=== PATIENT | female | born 1995 | race Caucasian/White ===

== ENCOUNTER 2021-10-12 10:36 | Outpatient (CLI) | payer OTHER, SELFPAY ==
[2021-10-13 12:27] LABS: Strep B DNA Probe NEGATIVE (Negative)
== END 2021-10-12 10:37 | disposition home or self-care (01) ==
LOC: NFLDREF 10:37
PROVIDERS: Visit Provider Obstetrics & Gynecology
DX: Z34.93 Encounter for supervision of normal pregnancy, unspecified, third trimester (principal); Z3A.36 36 weeks gestation of pregnancy
CPT/HCPCS: 87081; 87653

== ENCOUNTER 2021-11-03 03:25 | Inpatient (IN) | payer OTHER, SELFPAY ==
[2021-11-03] VITALS (100 sets, daily range): BP systolic 77–146; BP diastolic 40–88; PULSE 62–128; RESP 15–20; TEMP 36.6–37.7; O2SAT 95–100; BMI 32.7
[2021-11-03] MEDS: LACTATED RINGERS 1000 ML 1,000 ML 1125 ML IV ×2 (04:05→05:13)
[2021-11-03] MEDS: LIDOCAINE 2% (PF) 5 ML VIAL EPIDURAL (05:04)
[2021-11-03] MEDS: ROPIVACAINE 0.2% 100 ml 100 ML 12 MG EPIDURAL ×2 (05:09→12:51)
--- NOTE | 2021-11-03 05:28 | PM.ANBPRC ---
[facility] Social History (Updated 10/04/21 @ 17:05 by Daniella Craft MD) Narrative: Recently moved from [place] to [place]. She received her master's in anthropology in [place]. She is now working at [employer] in [employer]. She lives in [place] with her . works from home for [employer]. Smoking Status: Never smoker Meds Home Medications and Allergies Home Medications Medication Instructions Recorded Confirmed Type ferrous sulfate 325 mg (65 mg mg PO DAILY 09/30/21 10/31/21 History iron) tablet fluoxetine 20 mg capsule 20 mg PO DAILY 09/30/21 11/03/21 History prenat.vits,bhavani,kne-xzud-kpzoa 1 tab PO QDAY 09/30/21 11/03/21 History famotidine 20 mg tablet (Pepcid) 20 mg PO QDAY 10/04/21 11/03/21 History Allergies Allergy/AdvReac Type Severity Reaction Status Date / Time No Known Allergies Allergy Unknown Verified 10/31/21 11:28 Results Vital Signs Vital Signs: Last Vital Signs Temp 97.9 F 11/03/21 04:00 Pulse 81 11/03/21 05:23 BP 121/73 11/03/21 05:23 Pulse Ox 100 11/03/21 05:08 Anesthesia Procedures Epidural Insertion Patient Location: OB Start Time: 04:45 Stop Time: 05:45 Start Date: 11/03/21 Stop Date: 11/03/21 Reason for Block: procedure for pain Patient Position: sitting Performed By: Ciara Corea Preanesthetic Checklist: IV checked, site marked, risks and benefits discussed, monitors and equipment checked, pre-op evaluation, timeout performed and anesthesia consent Prep: chlorhexidine gluconate Monitoring: blood pressure monitoring, continuous pulse oximetry and heart rate Approach: midline Vertebral Space: lumbar (1-5) Epidural Technique: CB saline Needle Type: Hustead Injection Technique: continuous catheter Needle gauge: 18 Needle Length (cm): 10 cm Needle Insertion Depth (cm): 7 Catheter Gauge: 18 Catheter Type: multi-orifice Catheter at skin depth (cm): 15 Test Dose Result: negative
[2021-11-03 05:33] LABS: SARS PCR* Negative SARS-CoV-2 (Negative)
[2021-11-03] MEDS: PHENYLEPHRINE 100 MCG/ML SYRINGE IVP ×5 (08:10→11:37)
[2021-11-03] MEDS: ONDANSETRON 2 MG/ML inj 4 MG IV ×2 (08:26→11:24)
[2021-11-03] MEDS: LACTATED RINGERS 1000 ML 1,000 ML 125 ML IV (11:04)
--- NOTE | 2021-11-03 15:12 | W.PM.LDBA ---
Subjective History of Present Illness Time Seen by Provider: 09:30 Date Seen: 11/03/21 Narrative: Patient is being admitted to Labor and Delivery for SROM of clear fluid that occurred about 2 am. She is a 26 year old at 40 0/7 weeks gestation. Her full history and physical was dictated by Dr. Rosario on 10/12/2021. Please see this for details. OB Problem list: 1. OCD, stable on fluoxetine 20 mg 2. History of clubfeet, patient Normal level 2 ultrasound 3. Anemia. 10.1 at 28 weeks Ferrous sulfate 325 mg 10/12/21: Hgb at 36w6d: 11.2 OB - H&P: Exam Physical Exam: Vital signs: Temp Pulse Resp BP Pulse Ox 99.5 F 92 20 138/62 98 11/03/21 12:35 11/03/21 15:04 11/03/21 12:35 11/03/21 15:04 11/03/21 08:48 Constitutional: Constitutional: no acute distress and average body habitus Routine HEENT Exam: Head: Present atraumatic Routine Neck Exam: Neck: Present full ROM Routine Respiratory Exam: Respiratory: Present CTA bilaterally Routine Cardiovascular Exam: Cardiovascular: RRR Detailed Labor and Delivery Exam: Patient Gravid: yes Dilation (cm): 9 (Per RN) Effacement (%): 100 Cervix position: anterior Consistency: soft Tachysystole: No Contraction intensity: Strong/Firm Comments: Cervical exam done previously by RN Fetus (Single): Station: 0 Amniotic Membrane Status: SROM Amniotic Membrane Fluid Description: Clear Heart Rate Baseline: 145 Monitor Accelerations: Present Monitor Decelerations: None Client Relationship Consultant Variability: Average (6-10) Routine Back/Spine/Pelvis Exam: Back/Spine: full ROM Routine Skin Exam: Present intact Routine Neurological Exam: Present alert and oriented X3 Routine Psychiatric Exam: Present normal affect, normal thought process and cooperative OB - Problem Based A/P Additional Plan (1) Normal labor: Status: Acute Plan Assessment:?? 26 at 40 0/7 gestation?? Patient is coping well with challenges of labor.?? Labor type: Spontaneous, Active labor? Category 1 FHR pattern.?? Labor complicated by: none GBS neg? Plan:?? Continue with routine intrapartum cares as ordered. Patient encouraged to repositioning to promote physiologic labor and .?? Patient comfortable with epidural in place. Continue for pain management. OP presentation per RN, encouraged peanut ball and trying side-lying release. Patient denies urge to push. Anticipate vaginal .? Delivery/Labor/Induction Plan Plan: expectant management
--- NOTE | 2021-11-03 16:08 | PM.OBPNL ---
Pain Control Time Seen by Provider: 03:08 Date Seen: 11/03/21 Pain control: epidural Comments: Rosalia is a at 40 0/7 weeks gestation that was admitted this morning following SROM and labor. She labored spontaneously throughout the day with an epidural for comfort. She is supported by her . She progressed to complete and began pushing about 1113 with good maternal effort. She was amendable to pushing in multiple positions including side lying, hands and knees, and tug of war style. After 4 hours of pushing, patients energy level has started to deplete and maternal pushing effort had decreased. head is visible with pushing to +2 station. Recommended consultation with Dr. Craft for maternal fatigue and protracted 2nd stage. Contractions Monitor mode: External Contraction frequency: 2 (-4) Contraction pattern: Regular Contraction intensity: Strong/Firm Pelvic Exam Dilation (cm): 10 Effacement (%): 100 Station: +1 with descent to +2 with pushing Fetus (Single) Amniotic Membrane Status: SROM status: Category ll Assessment and Plan Assessment: other (2nd stage) Plan: continue present management Comments: Assessment:?? 26 at 40 0/7 gestation?? Patient is coping well with challenges of labor.?? Labor type: Spontaneous, Second stage of labor? Category 2 FHR pattern.?? Labor complicated by: protracted second stage, maternal fatigue? ? Plan:?? Continue with routine intrapartum cares as ordered.?? Dr. Craft consulted. Bedside US performed by Dr. Craft was suggested possible MARCELLE position. She discussed the possibility of vacuum vs section. See her documentation for more information. Patient comfortable with epidural, continues to use for labor pain management. Anticipate vaginal .??
[2021-11-03 17:07] LABS: Hematocrit 34.8 % (33.0-51.0); Hemoglobin* 11.4 gm/dL (12.0-16.0); Immature Granulocytes Abs Auto 0.44 K/uL (0.00-0.30); Lymphocytes Percent Auto 4.3 % (20-44); Mean Corpuscular HGB Conc 33 gm/dL (32-36); Mean Corpuscular Hemoglobin 27 pg (26-34); Mean Corpuscular Volume 83 fL (80-100); Monocytes Percent Auto 7.1 % (0.0-11.0); Neutrophils Percent Auto 86.8 % (42.0-72.0); Platelet Count* 236 K/uL (140-440); RDW Coefficient of Variation % 15.5 % (11.5-15.5); Red Blood Count 4.19 m/uL (4.00-5.20); White Blood Count* 24.03 K/uL (4.50-11.00)
[2021-11-03 17:08] LABS: Slide Review Reflex No
[2021-11-03 17:18] LABS: Prothrombin Time 13.6 Seconds
[2021-11-03 17:19] LABS: Partial Thromboplastin Time* 26 Seconds (23-33)
--- NOTE | 2021-11-03 17:28 | SUR.OPER ---
PATIENT, SURGEON AND DESIGN TECHNICIAN GIVE VERBAL CONSENT TO PERFORM THIS EMERGENT PROCEDURE. Patient positioned supine on OR #4 bed for the sedation. Pt. legs then moved into the lithotomy position for the procedure. Perioperative team supported arms bilaterally on arm boards. ?Final approval of positioning by surgeon.
--- NOTE | 2021-11-03 17:39 | W.ANESCHARGE ---
Anesthesia Charges Start Date/Time Anesthesia Start Date: 11/03/21 Anesthesia Start Time: 16:52 Stop Date/Time Anesthesia Stop Date: 11/03/21 Anesthesia Stop Time: 18:05 Summary Emergency: Yes
[2021-11-03 18:04] LABS: Fibrinogen* 664 mg/dL (200-450)
[2021-11-03] MEDS: LOPERAMIDE HCL 2 MG CAPSULE PO (18:15)
[2021-11-03] MEDS: IBUPROFEN 600 MG TABLET PO (18:32)
--- NOTE | 2021-11-03 19:18 | PM.OBPRCVD ---
Procedure Delivery date: 11/03/21 Procedure Done: Global Procedure Details: Procedures Followed by uterine curettage as detailed below Operation Date: 11/03/21 17:10 Actual Procedure Side Surgeon bre JOHNSON UNDER ANESTHESIA, Vaginal Laceration Repair, POST- CURETTAGE, BAKRI PLACEMENT Daniella Craft MD Intrapartal Events: Prolonged 2nd Stage >2.5 Hrs Delivery monitor: external FHT Route of delivery: vacuum extraction Indication for instrumentation: other (prolonged second stage) Episiotomy description: Right Mediolateral Laceration description: Perineal - 2nd Degree Delivery repair: Vicryl Estimated blood loss (mL): 1,040 Anesthesia type: Epidural Complications: Immediate hemorrhage, QBL 1040 mL Narrative: The patient is a 26 year-old G 1 P 0 woman admitted on 11/03/2021 at 40 Weeks, 0 Days gestation in labor after rupture membranes at home.? SROM occurred at 2:30 a.m. with clear fluid. ? Labor Analgesia:? Epidural ? Pitocin:? No ? Labor onset:? 4:30 a.m. ? Complete:? 11:00 a.m. ? Pushing:? 11:13 a.m. ? heart tones during second stage were reassuring. She was initially cared for during her labor by Erica Kate CNM. Please see her documentation for further detail. I was called to assess the patient after she had been pushing for 4 hours with with no progression in descent over the last hour. Upon my pelvic exam, I found the fetus to be in suspected MARCELLE presentation with head at +2 station, visible at the introitus with maternal expulsive efforts. Bedside ultrasound corroborated with my suspicion of MARCELLE presentation. heart rate was reassuring throughout. Maternal pelvis was deemed adequate. Straight catheterization of the bladder was performed. I discussed options for management of prolonged 2nd stage with patient, including attempt at vacuum assisted vaginal delivery, primary delivery, and continued observation. Initially, she favored , but after further discussion, she decided in favor of attempt at vacuum assisted vaginal delivery. Patient's legs were placed in lithotomy position with her legs supported in stirrups. The kiwi vacuum cup was placed over the vertex. The vacuum was applied, with suction, only during maternal expulsive efforts, and within the green zone each time. A total of 4 pulls were performed. After the 1st 2, I adjusted the placement of the cup slightly more anteriorly, which resulted in excellent descent of the vertex and the beginning of extension of the neck. After the 4th pull, the was nearly . Vacuum was then removed entirely. Several more pushes were attempted over the course of approximately 15 minutes, but patient was unable to deliver the infant. I then opted to perform a small mediolateral episiotomy in the patient's right side. This area was infiltrated with 5 mL of 1% lidocaine. A very small incision was made with a scalpel at around 7 o'clock at the introitus. The internal skin was tented up by examining fingers to avoid any injury to infant's head. After 2 more pushes, the patient was able to deliver the 's head. ? At 4:14 p.m. a viable male infant delivered in vertex MARCELLE presentation over right mediolateral episiotomy via vacuum assisted vaginal delivery.? Infant was placed on maternal abdomen.? Cord was clamped and cut after greater than 60 seconds. Nose and mouth were bulb suctioned.? Infant weight pending.? 8 at 1 minute and 9 at 5 minutes.? Shoulder dystocia: No.? Nuchal cord: Yes, x1, reduced prior to delivery of the anterior shoulder. ? Placenta delivered spontaneously and complete after approximately 10 minutes of 3rd stage with a 3 vessel cord. Thereafter, heavy bleeding developed. Placenta appeared intact. Atony was suspected. Patient was treated with uterine massage, IV oxytocin, 800 mcg of rectal misoprostol, 250 mcg of Hemabate, 0.2 mg of Methergine, and 1 g of TXA. Despite this, heavy bleeding persisted. Decision was made to moved to the operating room for uterine curettage; see below. ? Lacerations:? Second-degree perineal laceration with little to no extension from the episiotomy. Initially, this was repaired with 2 0 Vicryl in the usual fashion. Repair was not completed prior to moving back to the operating room. ? Blood loss: 1040 mL. Blood loss measurement type: QBL ? Sponge and needles counts are correct. Marion Infant Infant Gender: Male presentation: vertex Placental Delivery Description: Spontaneous total score - 1 minute: 8 total score - 5 minute: 9 OB Vag Delivery Procedures Additional Procedures D&C: Yes Laceration Repair: Yes Procedure Details: PREOPERATIVE DIAGNOSIS: Immediate hemorrhage, second-degree perineal laceration POSTOPERATIVE DIAGNOSIS: Immediate hemorrhage, likely secondary to uterine atony. Second-degree perineal laceration. Small vaginal laceration. PROCEDURE: uterine curettage Placement of Bakri balloon Repair of obstetrical lacerations SURGEON: Daniella Craft MD ANESTHESIA: Monitored anesthesia care IV FLUIDS: 500 mL normal saline, 1 bag packed red cells EBL: 800 mL intraoperatively FINDINGS: Manual exploration of the uterine cavity revealed no obvious retained placenta, but and irregular texture to the decidua. Endometrial curettings produced only a small amount of tissue. Bakri balloon was inflated to 250 mL, which slowed bleeding dramatically. In addition to the initially noted second-degree perineal laceration, the patient had a shallow periurethral laceration which was bleeding and required multiple sutures. COMPLICATIONS: None PROCEDURE IN DETAIL: Patient was taken to the operating room. A 2nd IV was started and the massive transfusion protocol was activated. Transfusion was begun in the operating room. She was given an additional dose of Hemabate 250 mcg and an additional dose of 1 g of TXA in the operating room. She was given 2 g of cefazolin in preoperative prophylaxis. Monitored anesthesia care was established. She was positioned in dorsal lithotomy position with her legs fully supported in Yellofin stirrups. She was prepped and draped in the usual sterile fashion. Robles catheter had previously been inserted. Weighted speculum was placed. The cervix was grasped with ring forceps. The entire circumference of the cervix was examined, and no lacerations were noted. The uterine cavity was explored manually, with findings as described above. Then, while grasping the anterior lip the cervix with ring forceps, the banjo curette was used to gently circumferentially curette the entire cavity. A gritty texture was noted throughout. The small amount of curettings were sent to pathology for further analysis. Bleeding persisted, and decision was made to place Bakri balloon. This was inserted manually into the uterine cavity. Then, it was inflated to 250 mL of saline. Vaginal packing was placed beneath the Bakri balloon, and was attached to a collection bag. The perineal laceration repair was completed with 2-0 Vicryl in the usual fashion. The bleeding periurethral laceration required 3 sutures of 2-0 Vicryl to obtain hemostasis. Patient was taken to the recovery area in stable condition.
[2021-11-04] MEDS: IBUPROFEN 600 MG TABLET PO ×3 (00:45→14:45)
[2021-11-04 01:36] VITALS: BP 98/61; PULSE 87; RESP 16; TEMP 36.9; O2SAT 96
[2021-11-04 04:00] VITALS: BP 101/63; PULSE 89; RESP 16; TEMP 36.6; O2SAT 96
--- NOTE | 2021-11-04 07:55 | PM.OBPNVD1 ---
OB - PN:Subj Subjective Time Seen by Provider: 07:55 Date Seen: 11/04/21 Interval history: The patient feels well. The pain is well controlled with current medications. She has no new complaints. Urinary output is adequate, but she has a stanton in place r/t PP hemorrhage, D & C and bakri placement after yesterday's delivery. Has a good appetite, is tolerating a general diet. The bakri was removed this AM and bleeding has remained WNL at this time. She has not been up ambulating yetl. She is , but is having a hard time keeping on at times. Patient comments OB post-: no complaints, pain well controlled and tolerating diet infant status: feeding status: exclusively OB - PN: Obj Exam Physical Exam: Vital signs: Temp Pulse Resp BP Pulse Ox O2 Del Method 97.8 F 89 16 101/63 96 11/04/21 04:00 11/04/21 04:00 11/04/21 04:00 11/04/21 04:00 11/04/21 04:00 11/04/21 04:00 Constitutional: Constitutional: no acute distress Routine HEENT Exam: Head: Present normal inspection and normocephalic Eye: Present normal appearance Routine Neck Exam: Neck: Present full ROM Routine Respiratory Exam: Respiratory: Present CTA bilaterally Routine Cardiovascular Exam: Cardiovascular: Present RRR Routine Abdominal Exam: Abdominal: Present normal bowel sounds Routine Exam: External: Present lacerations (well approximated, healing well), normal external exam and swelling (mild edema); Absent ecchymosis or erythema Perineum Description: Edematous (mild) Routine Extremities Exam: Extremities: Present full ROM and pedal edema (trace) Routine Back/Spine/Pelvis Exam: Back/Spine: Present full ROM Routine Skin Exam: Skin: Present dry and warm Routine Neurological Exam: Neurological: Present alert and oriented X3 Routine Psychiatric Exam: Psychiatric: Present normal affect OB - PN: Obj Data Labs Labs: Laboratory Results - last 24 hr 11/03/21 11/03/21 11/03/21 16:34 16:40 16:40 WBC 24.03 H RBC 4.19 Hgb 11.4 L Hct 34.8 MCV 83 MCH 27 MCHC 33 RDW Coeff of Ericka 15.5 Plt Count 236 Neut % (Auto) 86.8 H Lymph % (Auto) 4.3 L Ripley % (Auto) 7.1 Eos % (Auto) 0.0 Baso % (Auto) 0.0 Neut # (Auto) 20.90 H Lymph # (Auto) 1.00 Ripley # (Auto) 1.70 H Eos # (Auto) 0.00 Baso # (Auto) 0.00 Abs Immat Gran (auto) 0.44 H INR 1.00 APTT 26 Fibrinogen 664 H Blood Type A Positive Antibody Screen NEGATIVE Crossmatch (AHG) See Detail OB - PN: A/P Vaginal Delivery Assessment and Plan (1) Normal labor: Status: Acute Plan day: 1 Plan: routine care Comments: . Vacuum assisted vaginal delivery. Complicated by PP hemorrhage requiring blood transfusion, D & C, and bakri balloon. 1. continues routine PP cares 2. Hemoglobin pending. Will plan iron supplement if needed 3. Stanton out this AM. 4. Encourage ambulation. Aware to notify RN if dizzy. 5. . May work with if desired.
[2021-11-04] MEDS: FERROUS SULFATE 325 MG TABLET PO (08:01)
[2021-11-04] MEDS: DOCUSATE SODIUM 100 MG CAPSULE PO (08:02)
[2021-11-04 08:12] VITALS: BP 96/60; PULSE 87; RESP 16; TEMP 36.8; O2SAT 99
[2021-11-04 08:42] LABS: Hemoglobin* 9.9 gm/dL (12.0-16.0)
[2021-11-04 12:15] VITALS: BP 94/62; PULSE 93; RESP 14; TEMP 36.8
[2021-11-04] MEDS: ACETAMINOPHEN 500 MG TABLET 1000 MG PO ×2 (12:16→20:19)
[2021-11-04] MEDS: FLUOXETINE HCL 20 MG CAPSULE PO (12:17)
[2021-11-04 16:45] VITALS: BP 96/59; PULSE 88; RESP 14; TEMP 37; O2SAT 98
[2021-11-05 00:15] VITALS: BP 100/62; PULSE 70; RESP 16; TEMP 36.6
[2021-11-05] MEDS: IBUPROFEN 600 MG TABLET PO ×2 (03:10→09:58)
[2021-11-05] MEDS: ACETAMINOPHEN 500 MG TABLET 1000 MG PO (07:37)
[2021-11-05] MEDS: FLUOXETINE HCL 20 MG CAPSULE PO (07:38)
[2021-11-05] MEDS: FERROUS SULFATE 325 MG TABLET PO (07:38)
[2021-11-05] MEDS: DOCUSATE SODIUM 100 MG CAPSULE PO (07:38)
--- NOTE | 2021-11-05 10:22 | P.DS_ITS ---
DS: Providers Provider Date Seen: 11/05/21 Date of admission: 11/03/21 03:25 Primary care physician: Not a Local Provider Admitting Clinician: Sharon Simmons CNM Attending Physician on discharge: Dr. Daniella Craft MD Date of Discharge: 11/05/21 DS: Diagnosis Discharge Diagnosis (1) Status post vacuum-assisted vaginal delivery: Status: Acute Problem details: Indication arrest of descent (2) History of episiotomy: Status: Acute Problem details: Maternal exhaustion, prolonged 2nd stage (3) hemorrhage: Status: Acute Problem details: Approximately 2 L, managed with uterotonics, uterine curettage, placement of Bakri balloon (4) Anemia associated with acute blood loss: Status: Acute Problem details: Ferrous sulfate daily Exam Narrative: Exam Narrative: General: Pleasant, no acute distress Heart: Regular rate and rhythm, no murmur or gallop Lungs: Clear to auscultation bilaterally Abdomen: Soft, nontender, fundus well below umbilicus Lower extremities: 2+ edema bilateral feet, no erythema Const: Vital Signs, click to edit/add: Vital Signs - 24 hr 11/04/21 12:15 11/04/21 16:45 11/05/21 00:15 Temperature 98.3 F 98.6 F 97.9 F Pulse Rate [Pulse Oximeter] 93 88 70 Respiratory Rate 14 14 16 Blood Pressure [Ri ght Arm] 94/62 96/59 L 100/62 Pulse Oximetry 98 Oxygen Delivery Me thod Room Air Room Air Room Air OB - DS: Summary Hospital Course Hospital Course: The patient is a 26 year old G 1 now P 1-0-0-1 woman who presented at 40 weeks gestation on 11/03/21 for labor. She had a vacuum assisted vaginal delivery with right mediolateral episiotomy for indication of arrest of descent and maternal exhaustion. She had an immediate hemorrhage of approximately 2 L. This was managed with multiple uterotonics, urine curettage and placement of Bakri balloon. She had a second-degree perineal laceration without extension. She received 2 units of packed red cells in transfusion. She delivered a viable male . She is breast feeding. Bakri balloon was left in for approximately 12 hours. She had no heavy bleeding after placement. the patient has done well. Today, on day 2, she denies any pain. She is had difficulty. She is ambulating and urinating without difficulty. Peripartum Data Infant delivery method: Vacuum Laceration description: Periurethral - 2nd Degree Episiotomy description: Right Mediolateral Procedures: Procedures Operation Date: 11/03/21 17:10 Actual Procedure Side Surgeon p EXAMINE UNDER ANESTHESIA, Vaginal Laceration Repair, POST- CURETTAGE, BAKRI PLACEMENT Daniella Craft MD Procedures: D&C complications: transfusion and uterine atony Gender: Male Infant Discharge Plan: Home Infant A Gender: Male Status at Discharge Functional status at discharge: independent ambulation Time Spent with Patient Time attestation: Total time spent providing and/or coordinating discharge services: Discharge Plan Discharge Disposition: Home, Self-Care Date of Admission: 11/03/21 03:25 Attending Provider on Discharge: Daniella Craft Primary Care Provider: Provider,Not a Local Condition: Stable Anticipated Discharge Date/Time: 11/05/21 10:29 Discharge Medications: New acetaminophen 500 mg Tablet 1,000 mg PO Q6H PRN (Reason: Pain) Qty: 0 0RF docusate sodium 100 mg Capsule 100 mg PO DAILY Qty: 0 0RF ibuprofen 600 mg Tablet 600 mg PO Q6H PRN (Reason: Pain) Qty: 0 0RF Continued fluoxetine 20 mg capsule 20 mg PO DAILY prenat.vits,bhavani,wpk-fiik-eexhr Tablet 1 tab PO QDAY ferrous sulfate 325 mg (65 mg iron) tablet 325 mg PO DAILY famotidine [Pepcid] 20 mg tablet 20 mg PO QDAY Discharge Orders: Discharge Order (Routine); Ordered 11/05/21 Ordered By: Daniella Craft Patient Education: OB Vaginal/Breast Feeding Activity Detail: Nothing per vagina for 6 weeks Discharge Diet: Regular Follow Up Appointments: Provider,Not a Local [Primary Care Provider] - Daniella Craft MD [Staff Physician] - Forms: [employer] Info Instructions
[2021-11-05 10:30] VITALS: BP 108/72; PULSE 78; RESP 16; TEMP 37
== END 2021-11-05 14:15 | disposition home or self-care (01) | DRG 768 ==
LOC: OB OUT 03:31 → OB 03:31
PROVIDERS: Advanced Practice Midwife; Obstetrics & Gynecology; Admitting Provider Advanced Practice Midwife; Visit Provider Advanced Practice Midwife
PROC: 0UQG0ZZ Repair Vagina, Open Approach (ICD-10-PCS; principal; 2021-11-03 17:00)
DX: O75.81 Maternal exhaustion complicating labor and delivery (principal); Z37.0 Single live birth; O72.1 Other immediate postpartum hemorrhage; O70.1 Second degree perineal laceration during delivery; F42.9 Obsessive-compulsive disorder, unspecified; O99.02 Anemia complicating childbirth; D64.9 Anemia, unspecified; Z3A.40 40 weeks gestation of pregnancy
CPT/HCPCS: 01965; 01967; 36415; 76815; 84112; 85018; 85025; 85384; 85610; 85730; 86850; 86900; 86901; 86922; 87635; 88305; 88307; 99140; A9270; J2250; J2370; J2405; J2590; J2704; J2795; J3010; J7120; P9016

== ENCOUNTER 2021-11-17 14:23 | Outpatient (CLI) | payer OTHER, SELFPAY ==
[2021-11-17 16:25] LABS: Albumin* 4.2 g/dL (3.3-5.0); Chloride* 103 mmol/L (96-114)
[2021-11-17 16:26] LABS: Potassium* 4.9 mmol/L (3.6-5.1); Sodium* 139 mmol/L (135-149)
[2021-11-17 16:28] LABS: Alkaline Phosphatase* 301 U/L (40-150); Amylase* 60 U/L (18-89); Aspartate Amino Transferase* 640 U/L (12-35); Bilirubin Total* 1.4 mg/dL (0.1-1.5); Blood Urea Nitrogen* 11 mg/dL (5-24); Carbon Dioxide* 28 mmol/L (20-32); Creatinine* 0.6 mg/dL (0.5-1.5); Estimated Glomerular Filt Rate 127 ml/min; Total Protein* 7.3 g/dL (6.0-8.3)
[2021-11-17 16:29] LABS: Alanine Aminotransferase* 343 U/L (4-35); Calcium* 9.7 mg/dL (8.4-10.6); Glucose* 97 mg/dL (60-115); Lipase* 312 U/L (23-300)
== END 2021-11-17 14:24 | disposition home or self-care (01) ==
PROVIDERS: Visit Provider Physician Assistant
DX: R10.11 Right upper quadrant pain (principal); R10.13 Epigastric pain
CPT/HCPCS: 80053; 82150; 83690

== ENCOUNTER 2021-11-18 07:27 | Outpatient (CLI) | payer OTHER, SELFPAY ==
[2021-11-18 08:30] LABS: Albumin* 4.2 g/dL (3.3-5.0)
[2021-11-18 08:33] LABS: Alkaline Phosphatase* 349 U/L (40-150); Amylase* 63 U/L (18-89); Aspartate Amino Transferase* 321 U/L (12-35); Bilirubin Direct* 0.4 mg/dL (0.0-0.5); Bilirubin Total* 0.9 mg/dL (0.1-1.5); Total Protein* 7.3 g/dL (6.0-8.3)
[2021-11-18 08:34] LABS: Alanine Aminotransferase* 361 U/L (4-35); Lipase* 96 U/L (23-300)
== END 2021-11-18 07:28 | disposition home or self-care (01) ==
PROVIDERS: Visit Provider Physician Assistant
DX: R10.11 Right upper quadrant pain (principal); K80.80 Other cholelithiasis without obstruction
CPT/HCPCS: 76705; 80076; 82150; 83690

== ENCOUNTER 2021-11-21 15:06 | Outpatient (CLI) | payer OTHER, SELFPAY ==
[2021-11-21 16:08] LABS: Albumin* 4.1 g/dL (3.3-5.0)
[2021-11-21 16:11] LABS: Alanine Aminotransferase* 93 U/L (4-35); Alkaline Phosphatase* 219 U/L (40-150); Aspartate Amino Transferase* 26 U/L (12-35); Bilirubin Direct* 0.2 mg/dL (0.0-0.5); Bilirubin Total* 0.2 mg/dL (0.1-1.5); Lipase* 131 U/L (23-300); Total Protein* 6.9 g/dL (6.0-8.3)
== END 2021-11-21 15:07 | disposition home or self-care (01) ==
PROVIDERS: Visit Provider Surgery
DX: K80.20 Calculus of gallbladder without cholecystitis without obstruction (principal); K85.90 Acute pancreatitis without necrosis or infection, unspecified
CPT/HCPCS: 80076; 83690

== ENCOUNTER 2021-11-22 10:14 | Day surgery (SDC) | payer OTHER, SELFPAY ==
[2021-11-22] VITALS (14 sets, daily range): BP systolic 98–126; BP diastolic 61–84; PULSE 52–84; RESP 13–18; TEMP 36.1–36.6; O2SAT 96–99; BMI 29.0
[2021-11-22 10:14] LABS: SARS PCR* Negative SARS-CoV-2 (Negative)
[2021-11-22] MEDS: SODIUM CHLORIDE 0.9 % (FLUSH) 10 ML SYRINGE IVF (10:30)
[2021-11-22] MEDS: LACTATED RINGERS 1000 ML 1,000 ML 100 ML IV (10:30)
[2021-11-22 10:38] LABS: HCG Qualitative* Negative (Negative)
[2021-11-22] MEDS: CEFAZOLIN 2 GM INJ IVP (11:54)
--- NOTE | 2021-11-22 11:58 | CRLHL7_ITS ---
For Patients: As a result of the Century Cures Act, medical imaging exams and procedure reports are released immediately into your electronic medical record. You may view this report before your referring provider. If you have questions, please contact your health care provider. INDICATION: Post cholecystectomy intraoperative cholangiogram. TECHNIQUE: Intraoperative C-arm fluoroscopy. IMPRESSION: Intraoperative cholangiogram was obtained. No sign of retained stone on 2nd image. No sign of contrast extravasation to suggest biliary leak. Fluoroscopy time 57.2 seconds. Two images were captured. Dictated by Kunal Rasheed MD @ 11/22/2021 1:46:53 PM (Electronically Signed)
[2021-11-22] MEDS: IOPAMIDOL 50 ML VIAL INJECTION (12:35)
[2021-11-22] MEDS: BUPIVACAINE 0.25% 30 ML INJECTION ×2 (12:35→13:21)
[2021-11-22] MEDS: 0.9% SODIUM CHL 50 ML VIAL INJECTION (12:35)
[2021-11-22] MEDS: METOCLOPRAMIDE HCL 5 MG/ML INJ 10 MG IVP (13:29)
--- NOTE | 2021-11-22 13:33 | W.ANESCHARGE ---
Anesthesia Charges Start Date/Time Anesthesia Start Date: 11/22/21 Anesthesia Start Time: 11:41 Stop Date/Time Anesthesia Stop Date: 11/22/21 Anesthesia Stop Time: 13:29 Summary Emergency: No
--- NOTE | 2021-11-22 13:46 | P.GSOP_ITS ---
Operative Note Date of procedure: 11/22/21 Type of Procedure: 1. Laparoscopic cholecystectomy with intraoperative cholangiogram. Procedure Description: After discussing the risks and benefits of the procedure, the patient signed informed consent.? The operative site was marked and the patient was brought to the operating room and placed on the operating table in supine position.? Care was taken to pad the patient's pressure points.?? The patient was then intubat ed by anesthesia.?? The operative site was then prepped and draped in the usual sterile fashion.? A time-out was then performed. A 5-mm laparoscopy port was placed in the left upper quadrant guided by a 5-mm laparoscope placed into a translucent trochar.~ Passage through the layers of the abdominal wall was visualized with the laparoscope. However I was not able to obtain access to the abdomen. After 2 unsuccessful attempts, I elected to proceed with placing a Ilsa port supraumbilically. Local anesthetic was injected and a supraumbilical skin incision was made with a scalpel. Anterior fascia was grasped with Tomeka clamps and incised with scissors. The posterior fascia and peritoneum were bluntly entered with a Charity clamp and an 11 mm port was inserted into the abdomen. The abdomen was insufflated. The 10 mm camera was then placed through this port and the abdomen was examined. In the left upper quadrant theperitoneum was not violated and there was no evidence of intra-abdominal organ injury. Three 5 mm ports were placed on the right and in the left upper quadrant under direct visualization by laparoscope. The gallbladder was identified, the fundus grasped and retracted cephalad. Minimal omental adhesions were noted to the anterior surface of the gallbladder. Those were taken down with hook cautery. Duodenum and pancreas were easily identified, and care was taken not to injure those. The infundibulum was grasped and retracted laterally, exposing the peritoneum overlying the triangle of Calot. This was then divided and exposed in a blunt fashion and with hook cautery. Common bile duct was identified and care was taken not to injure it. The cystic duct was clearly identified and bluntly dissected circumferentially. Cystic artery was identified and tissues around it were dissected off. The cystic artery and the cystic duct were clearly going into the gallbladder. The cystic artery was then clipped with 5 mm clips and divided with scissors. There was a posterior branch from the cystic artery going into the gallbladder fossa and terminating at the cystic artery. This was clipped with a 5 mm clip as well. I then proceeded with intraoperative cholangiogram. The cystic duct was clipped with a 5 mm clip on the gallbladder side and a small ductotomy was made with laparoscopic Metzenbaum scissors. An additional 5 mm port was placed under direct visualization in the right upper quadrant. A blue introducer from an Arrow cholangiogram kit was placed through the port and a cholangiocatheter was placed through the introducer and directed into the cystic duct. Initially, I was having difficulty placing the cholangiocatheter into the cystic duct. With gentle milking from the proximal cystic duct towards the ductotomy, I was able to extract 2 small gallstones. Those were removed from the abdomen. The catheter was then advanced into the cystic duct. The catheter was clipped in place with a single 5 mm clip at the ductotomy site to secure it in place. Fluoroscopy was brought onto the field and Optiray 300 contrast dye was injected through the cholangiocatheter. The biliary tree was visualized and the contrast appeared to be emptying into the small bowel. However, there were 2 small filling defects near the junction of the cystic duct and the common bile duct. The cystic duct was very tortuous and small and I did not think that I would be able to perform a choledochoscopy. 1 mg of glucagon was administered intravenously. I then flushed the cystic duct and the common bile duct with normal saline. Repeat cholangiogram revealed no filling defects and the contrast diet continued to flow into the duodenum. At this time 5 mm clip on the cystic duct and cholangiocatheter were removed and the cholangiocatheter was removed from the cystic duct. The duct was then clipped with two 5 mm clips on the patient's side just below the ductotomy. The cystic duct was then divided at the level of ductotomy. The gallbladder was dissected from the liver bed in retrograde fashion using hookcautery. The gallbladder was placed into an Endo-Catch bag and removed through the supraumbilical incision. Surgical site was examined for bleeding. No bleeding was seen in the surgical field. The fascia of the supraumbilical incision was then closed with a U-stitch using 0-0 vicryl. Pneumoperitoneum was completely reduced after viewing removal of the trocars under direct vision. The skin of all incisions was then closed with 4-0 monocryl and steristrips were applied. Instrument, sponge, and needle counts were correct at closure and at the conclusion of the case. The patient was transferred to PACU in stable condition. ? Findings: Multiple stones noted in the gallbladder. Two stones were removed from the cystic duct prior to intraoperative cholangiogram. Two additional small filling defects were noted in the common bile duct during the cholangiogram. Those were flushed after administration of glucagon. Anesthesia: GETA Surgeon: Veronika Johnson MD Estimated blood loss (mL): 5 Condition: stable Disposition: PACU
[2021-11-22] MEDS: ONDANSETRON 2 MG/ML inj 4 MG IVP (13:55)
== END 2021-11-22 15:19 | disposition home or self-care (01) ==
PROVIDERS: Nurse Anesthetist, Certified Registered; PCP Physician Assistant; Visit Provider Surgery
PROC: 0FT44ZZ Resection of Gallbladder, Percutaneous Endoscopic Approach (ICD-10-PCS; CPT 47563; principal; 2021-11-22 11:30)
DX: K80.10 Calculus of gallbladder with chronic cholecystitis without obstruction (principal)
CPT/HCPCS: 47563; 00790; 74300; 84703; 87635; 88304; J0131; J0330; J0690; J1100; J1170; J1200; J1610; J1885; J2250; J2405; J2704; J2710; J2765; J3010; J3490; J7120; Q9967

== ENCOUNTER 2023-03-02 15:04 | Outpatient (CLI) | payer BC, SELFPAY | END 2023-03-02 15:05 | disposition home or self-care (01) | PROVIDERS: PCP Family Medicine; Visit Provider Family Medicine | DX: D62 Acute posthemorrhagic anemia (principal); R20.2 Paresthesia of skin | CPT/HCPCS: 80053; 82306; 82607; 82728; 84443 ==

== ENCOUNTER 2024-02-05 14:50 | Outpatient (CLI) | payer OTHER, SELFPAY ==
--- OUTSIDE RECORDS SUMMARY | 2024-02-05 14:55 | XMS_ITS | Clinical Summary ---
Author Organization [facility] er Address [address] [place] [id number] Care Team Providers Care Thermodynamics Engineer Name Role Phone None, Pcp Primary Care Provider Unavailabl e Allergies No known active allergies Medications Medication Sig Dispensed Refills Start Date End Date Status FLUoxetine (PROzac) 40 MG capsule Take 1 capsule (40 mg total) by mouth 1 (one) time each day 06/08/2023 Active naproxen sodium (ALEVE) 220 MG tablet Take 1 tablet (220 mg total) by mouth 2 (two) times a day with meals Active acetaminophen (TYLENOL) 500 MG tablet Take 2 tablets (1,000 mg total) by mouth every 6 (six) hours if needed for mild pain Active Active Problems No known active problems Social History Tobacco Use Types Packs/Day Years Used Date Smoking Tobacco: Never Smokeless Tobacco: Never Tobacco Cessation:Counseling Given: No Sex and Gender Information Value Date Recorded Sex Assigned at Not on file Gender Identity Not on file Sexual Orientation Not on file Last Filed Vital Signs Vital Sign Reading Time Taken Comments Blood Pressure - - Pulse - - Temperature - - Respiratory Rate - - Oxygen Saturation - - Inhaled Oxygen Concentration - - Weight 88 kg (194 lb) 06/29/2023 10:52 AM CDT Height 171 cm (5' 7.32) 06/29/2023 10:52 AM CDT Body Mass Index 30.09 06/29/2023 10:52 AM CDT Plan of Treatment Health Maintenance Due Date Last Done Comments Pap Smear 1995 DTaP,Tdap,and Td Vaccines (3 - Td or Tdap) 08/20/2031 08/19/2021, 03/01/2020 COVID-19 Vaccine Completed 12/27/2023, 12/27/2022 Influenza Vaccine Completed 12/28/2023, 12/27/2022 HPV Vaccines Aged Out No longer eligi ble based on patient's age to complete this topic Pneumococcal Vaccine: Pediatrics (0 to 5 Years) and At-Risk Patients (6 to 64 Years) Aged Out No longer eligible b ased on patient's age to complete this topic Care Teams Thermodynamics Engineer Relationship Specialty Start Date End Date None, Pcp [address] [facility] [place] [address] PCP - General Profiling Machine Operator 06/29/23
[2024-02-08 02:39] LABS: HPV Source Cervix; HPV, High Risk by TMA Not Detected
== END 2024-02-05 14:51 | disposition home or self-care (01) ==
PROVIDERS: PCP Family Medicine; Visit Provider Physician Assistant
DX: Z01.419 Encounter for gynecological examination (general) (routine) without abnormal findings (principal); Z12.4 Encounter for screening for malignant neoplasm of cervix
CPT/HCPCS: 87624; 87625; 88141; 88142

== ENCOUNTER 2024-02-12 07:51 | Outpatient (CLI) | payer OTHER, SELFPAY ==
--- OUTSIDE RECORDS SUMMARY | 2024-02-15 21:22 | XMS_ITS | Clinical Summary ---
Author Organization [facility] er Address [address] [place] [id number] Care Team Providers Care Licensed Practical Nurse Instructor Name Role Phone None, Pcp Primary Care Provider Unavailabl e Allergies No known active allergies Medications FLUoxetine (PROzac) 40 MG capsule Take 1 [...] Smokeless Tobacco: Never Tobacco Cessation:Counseling Given: No Comments Unknown Sex and Gender Information Value Date Recorded Sex Assigned at Not on file Legal Sex Female 9:57 AM CDT Gender Identity Not on file Sexual Orientation [...] on patient's age to complete this topic Insurance [facility] Care Teams Licensed Practical Nurse Instructor Relationship Specialty Start Date End Date None, Pcp [address] [facility] [place] [address] PCP - General Field Operations Technician 06/29/23
== END 2024-02-12 07:52 | disposition home or self-care (01) ==
LOC: NFLDREF 02-15 21:21
PROVIDERS: PCP Family Medicine; Referring Provider Family Medicine; Visit Provider Physician Assistant
DX: Z13.6 Encounter for screening for cardiovascular disorders (principal); Z13.1 Encounter for screening for diabetes mellitus
CPT/HCPCS: 80061; 82947

== ENCOUNTER 2025-02-06 09:06 | Outpatient (CLI) | payer OTHER, SELFPAY | END 2025-02-06 09:07 | disposition home or self-care (01) | PROVIDERS: PCP Registered Nurse; Visit Provider Physician Assistant | DX: R53.83 Other fatigue (principal) | CPT/HCPCS: 80061; 82306; 84443 ==

== ENCOUNTER 2025-03-09 11:20 | Emergency (ER) | payer OTHER, SELFPAY ==
[2025-03-09 11:21] VITALS: BP 122/88; PULSE 85; RESP 16; TEMP 35.6; O2SAT 96; BMI 28.0
[2025-03-09] MEDS: ONDANSETRON 2 MG/ML inj 4 MG IVP (12:02)
--- NOTE | 2025-03-09 12:18 | ED_ITS ---
HPI - General Adult General Date Seen: 03/09/25 Chief complaint: Headache/Migraine Stated complaint: Migraine Time Seen by Provider: 03/09/25 11:29 History of Present Illness HPI narrative: Patient is a 30-year-old woman with a history of migraine, has had a migraine for the past several days that is not responding to her sumatriptan. Notes light sensitivity, vomiting, This headache is worse than her usual headaches but not otherwise different. no fever, neurologic changes, recent trauma. Related Data Home Medications ?Medication ?Instructions ?Recorded ?Confirmed celecoxib 100 mg capsule 100 mg PO BID PRN 02/06/25 1 05/10/24 Previous Rx's ?Medication ?Instructions ?Recorded fluoxetine 20 mg capsule 20 mg PO QDAY #90 caps 02/06 fluoxetine 40 mg capsule 40 mg PO QDAY #90 caps 02/06 sumatriptan succinate 50 mg tablet 50 mg PO ONCE #9 ta bs 02/06/25 (Imitrex) Allergies Allergy/AdvReac Type Severity Reaction Status Date / Time No Known Allergies Allergy Unknown Verified 03/09/25 11:27 Review of Systems Status of ROS: Reports: 10 or more systems reviewed and unremarkable except as noted in History and below PFSH PFS Medical History Vegetarian diet ?Z78.9 - Other specified health status (ICD-10) anxiety ?O99.345 - Other mental disorders complicating the puerperium (ICD-10) ?F41.8 - Other specified anxiety disorders (ICD-10) Anxiety ?F41.9 - Anxiety disorder, unspecified (ICD-10) OCD (obsessive compulsive disorder) (~2019) ?F42.9 - Obsessive-compulsive disorder, unspecified (ICD-10) Anemia associated with acute blood loss ?D62 - Acute posthemorrhagic anemia (ICD-10) hemorrhage ?O72.1 - Other immediate hemorrhage (ICD-10) Surgical History Status post vacuum-assisted vaginal delivery ?Z87.59 - Personal history of other complications of , childbirth and the puerperium (ICD-10) S/P laparoscopic cholecystectomy (2021) ?Z90.49 - Acquired absence of other specified parts of digestive tract (ICD- 10) History of adenoidectomy ?Z90.89 - Acquired absence of other organs (ICD-10) History of appendectomy (2008) ?Z90.49 - Acquired absence of other specified parts of digestive tract (ICD- 10) History of foot surgery ?Z98.890 - Other specified postprocedural states (ICD-10) Family History Mother Breast cancer, Onset Age: 57 Osteoporosis Maternal Grandfather Diabetes Lung cancer Alcohol dependence Maternal Grandmother Diabetes Paternal Grandfather Diabetes Paternal Grandmother Diabetes Schizophrenia Social History Narrative: , 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 She received her master's in anthropology in [place]. She is now working at [employer] in [employer]. She lives in [place] with her . works from home for [employer] Nonsmoker. Alcohol use: 2 drinks per week What is your current living situation?: I presently have a place to live Problems where you live: no known problems In the past 12 months, utilities in danger of being shut off: no In past 12 months, lack of transportation kept you from medical appts, meetings, work, or getting things needed for daily living: no How hard is it for you to pay for the very basics like food, housing, medical care, and heating: not very hard In the past 12 mos, have been you worried that your food would run out before you had money to buy more?: never true In the past 12 mos, the food you bought just didn't last and you didn't have money to buy more?: never true Smoking Status: Never smoker How often do you have a drink containing alcohol: monthly or less AUDIT-C Alcohol total score: 1 Non-prescribed substance use: denies use Caffeine: Yes How often does anyone, including family, friends and others, physically hurt you : never How often does anyone, including family, friends and others, insult or talk down to you: never How often does anyone, including family, friends and others, threaten you with harm: never How often does anyone, including family, friends and others, scream or curse at you: never Exam Narrative: Exam Narrative: Vital signs reviewed In general, an alert, nontoxic Head: Normocephalic, atraumatic. Eyes: Sclera clear. Pupils equal and reactive. ENT: Mucous membranes moist. Neck: Supple without adenopathy. Heart: Regular rate and rhythm without murmur. Lungs: Clear. No increased work of breathing, crackles or wheezes. Abdomen: Soft, nontender to palpation. Extremities: Well perfused, pulses intact. No significant edema. Neurologic: Alert, conversant. Speech fluent, face symmetric. Moves all extremities equally. Skin: Warm, dry well perfused. Affect: Normal. Const: Vital Signs, click to edit/add: Vital Signs - 24 hr 03/09/25 11:21 Temperature 96.1 F L Pulse Rate [Pulse Oximeter] 85 Respiratory Rate 16 Blood Pressure [Ri ght Upper Arm] 122/88 Pulse Oximetry 96 Oxygen Delivery Me thod Room Air Course Course ED Course: Patient presents with migraine headache, no red flag symptoms suggesting anything for further workup at this time. Will start with Toradol, Zofran, Benadryl and fluids and reassess. Headache relieved with medications. Patient is comfortable with discharge home. Return as needed if she has recurrent severe or persistent symptoms. Otherwise, primary care follow-up if having on and concerns. Diagnosis: Migraine headache Vital Signs Vital signs: Initial Vital Signs Temperature 96.1 F L 03/09/25 11:21 Temperature Source Temporal Artery Scan 03/09/25 11:21 Pulse Rate 85 03/09/25 11:21 Respiratory Rate 16 03/09/25 11:21 Blood Pressure 122/88 03/09/25 11:21 Blood Pressure Mean 99 03/09/25 11:21 Blood Pressure Position Sitting 03/09/25 11:21 Pulse Oximetry 96 03/09/25 11:21 Oxygen Delivery Method Room Air 03/09/25 11:21 Vital Signs Temperature 96.1 F L 03/09/25 11:21 Pulse Rate 85 03/09/25 11:21 Respiratory Rate 16 03/09/25 11:21 Blood Pressure 122/88 03/09/25 11:21 Pulse Oximetry 96 03/09/25 11:21 Oxygen Delivery Method Room Air 03/09/25 11:21 Temperature 96.1 F L 03/09/25 11:21 Pulse Rate 85 03/09/25 11:21 Respiratory Rate 16 03/09/25 11:21 Blood Pressure 122/88 03/09/25 11:21 Pulse Oximetry 96 03/09/25 11:21 Oxygen Delivery Method Room Air 03/09/25 11:21 Medications Administered Medications: Discontinued Medications Generic Name Dose Route Start Last Admin Trade Name Victorinoq PRN Reason Stop Dose Admin Diphenhydramine HCl 25 mg 03/09/25 11:43 03/09/25 12:02 Diphenhydramine 50 Mg/Ml Inj IVP 03/09/25 11:44 25 mg ONCE ONE Administration Sodium Chloride 1,000 mls @ 1,000 mls/hr 03/09/25 11:45 03/09/25 13:01 0.9 % Sodium Chloride 1000 Ml IV 03/09/25 12:44 Infused .Q1H FANY Infusion Ketorolac Tromethamine 15 mg 03/09/25 11:43 03/09/25 12:02 Ketorolac 15 Mg/Ml Inj IVP 03/09/25 11:44 15 mg ONCE ONE Administration Ondansetron HCl 4 mg 03/09/25 11:43 03/09/25 12:02 Ondansetron 2 Mg/Ml Inj IVP 03/09/25 11:44 4 mg ONCE ONE Administration Discharge Plan Discharge Clinical Impression: Migraine Patient Disposition: Home, Self-Care Condition: Improved Instructions: Migraine Headache (ED) Additional Instructions: Return as needed for recurrent or persistent symptoms. See primary care for ongoing concerns. Prescriptions: No Action celecoxib 100 mg capsule 100 mg PO BID PRN sumatriptan succinate [Imitrex] 50 mg tablet 50 mg PO ONCE Qty: 9 1RF Rx Instructions: 1 po at onset, may repeat in 2 hours if needed fluoxetine 40 mg capsule 40 mg PO QDAY Qty: 90 3RF Rx Instructions: to be taken with 20mg cap for a total of 60mg fluoxetine 20 mg capsule 20 mg PO QDAY Qty: 90 3RF Follow Up/Referrals: Luann Pena, RECREATION ATTENDANT [Primary Care Provider, Family Practice] Stand Alone Forms: MyHealth Info Instructions
== END 2025-03-09 13:12 | disposition home or self-care (01) ==
PROVIDERS: Emergency Provider Emergency Medicine; PCP Registered Nurse
DX: G43.909 Migraine, unspecified, not intractable, without status migrainosus (principal)
CPT/HCPCS: 96374; 96375; 99284; J1200; J1885; J2405; J7030